=== PATIENT | female | born 1955 | race Caucasian/White ===

== ENCOUNTER → 2019-06-22 | Outpatient (CLI) | payer OTHER ==
[~2019-06-22] VITALS: Ht 170.2 cm; Wt 85.3 kg
[~2019-06-22] MED LIST: MELATONIN5 M4 PO; MOBIC15 MG PO; NEURONTIN 300300 M1 PO; OXYBUTYNIN CHLO10 MG PO; TRAMADOL 50 MG50 MG PO; VITAMIN D10000 UNIT PO; ZANAFLEX4 MG PO; ZOLPIDEM TARTRA10 MG PO; ZYRTEC10 M5 PO
[2019-06-22 14:55] VITALS: BP 147/75
--- NOTE | 2019-06-22 15:11 | NUR ---
Pain Clinic Assessment: 1. History of Osteoarthritis: NO History of Rheumatoid Arthritis: NO 2. Height: 5 ft. 7 in. 170.2 cm. Weight: 188.0 lb. oz. 85.276 kg. Patient's BMI: 29.4 3. Vital Signs: BP: 147/75 Pulse: 79 Resp: 16 Temp: 02 Sat: 97 ECG Mon: 4. Pain Intensity: 4 5. Fall Risk: Dizziness: N Needs help standing or walking: N Fallen in the last 3 months: N Fall risk comments: 6. Patient on Blood Thinner: None 7. History of Hypertension: N 8. Opioid Therapy greater than 6 weeks: N Opiate Contract Signed: 9. Risk Assessment Tool Provided: 10. Functional Assessment Tool: 11. Recreational Drug Use: Never Drug Type: Tobacco Use: Never Smoker Tobacco Type: Amount or Packs/day: How Many Years: Alcohol Use: No Frequency: Quant:
--- NOTE | 2019-06-29 16:33 | HPC ---
[facility] [address] [place] [address] PAIN MANAGEMENT CONSULTATION Name: JODY CRYSTAL Room #: [facility] M..#: [id number] Admission: 06/22/19 Attend Phys: Noam Aguilar MD Discharge: Date of : 51 Report #: [id number] THIS REPORT FOR: //name// CC: Adam Aguilar DATE OF SERVICE: 06/22/2019 CHIEF COMPLAINT: Severe L4 radiculopathy on the right with synovial cyst L3-L4 following instrumentation and laminectomy in the treatment of spondylolisthesis. The patient is a pleasant 63 year old I am seeing today at the request of Kristen Hogan. She has had longstanding low back pain and ultimately underwent an L4-L5 fusion for treatment of spondylolisthesis. At the time of surgery, she was living in [place] and the surgery was performed in [place]. For a brief time, she was improved. In 2019, she began experiencing pain once again. By this time, she had moved to [place] to be closer to family. Today, she describes a continuous buzzing, throbbing, sharp, stabbing, cramping pain that varies based on position between 4-8/10 and can be as bad as a 10+/10. She describes it as one of her worst pains ever at times. It is radiating and nerve like. It is improved when she is able to lay down or sits. She has had an MRI, which I was able to review. I reviewed both the report and the films in detail. There is a diffuse moderate bulge and moderate facet arthropathy at L3-L4 with a fairly large synovial cyst adjacent to the right facet producing right lateral recess and a mass effect on the lateral thecal sac. This does not appear to be affecting the L3 nerve root; however, as this nerve exits through the L3-L4 neural foramen. It seems to be catching the L4 nerve root as it passes along the pedicle and out through the L4-L5 neural foramen. There is no significant neural stenosis there. Her pain follows a very classic L4 distribution into the great toe of the right foot. MEDICATIONS: Vitamin D, oxybutynin, melatonin, zolpidem, turmeric, gabapentin 300 mg t.i.d., tizanidine 4 mg, tramadol 50 mg, and ibuprofen 200 mg. ALLERGIES: None. She is sensitive to opioids and does not want to take hydrocodone or any stronger mu-opioid agonist. PAST MEDICAL HISTORY: Positive for in 1989, asthma, hysterectomy in 2015. She complains of arthritis involving the spine. SOCIAL HISTORY: She denies use of tobacco and alcohol. She is . Her is with her today and supportive. She worked in retail sales until retiring in 2015 when she moved to [place] to be closer to family. [facility] [address] [place] [address] PAIN MANAGEMENT CONSULTATION Name: JODY CRYSTAL Room #: REG [facility] Erwin#: [id number] Admission: 06/22/19 Attend Phys: Noam Aguilar MD Discharge: Date of : 51 Report #: [id number] REVIEW OF SYSTEMS: Completed by the patient describing decreased weight and appetite related to pain, fatigue, and weakness also pain related, chronic asthma under control, nocturia. PHYSICAL EXAMINATION: VITAL SIGNS: She is 5 feet 7 inches, 188 pounds, BMI is 29.4. Blood pressure is 145/75, heart rate 79, respirations 16, O2 sat 97. Pain intensity in the sitting position is 4/10. HEENT: Normal. Pupils are equal, round, reactive to light. EOMs are intact. NECK: Supple. No palpable masses or adenopathy. CHEST: Clear to auscultation without wheezing or asthma. CARDIAC: Regular rate and rhythm without murmur. MUSCULOSKELETAL: Examination of the spine reveals a parallel scars in the lumbosacral region consistent with a technique utilized to perform reduction of anterolisthesis. There is tenderness bilaterally along the lumbosacral spine in the paravertebral muscle groups. The straight leg raising is present and positive in the sitting and supine position following an L4 distribution. Deep tendon reflexes are asymmetrical at the patellar tendon with a 2+ reflex on the left and a trace on the right. This suggests L4 radiculopathy. Sensation is intact, although there is some hyperalgesia along the course of the L4 nerve root through the hip, anterolateral thigh and into the lower leg and foot. Strength is adequate and there is no asymmetry. MRI is reviewed as above. IMPRESSION: L4 radiculopathy on the right secondary to L3-L4 synovial cyst projecting into the right lateral recess creating stenosis and a mass effect on the thecal sac. RECOMMENDATIONS: I believe that we can perform a right L3-L4 transforaminal injection and attempt a trephination in the process. The needle will need to be placed low in the foramen and will be done with the patient awake without local anesthetic to be cautious about any paresthesia of the L3 nerve root. An alternate approach would be posteriorly with the penetration of the L3-L4 facet joint, followed by injection to create a positive pressure within the cyst sometimes rupturing it. Radiology physicians have been more capable of this form of cyst treatment, sometimes performing under CT guidance. She may ultimately require a facetectomy if we are unable to perform this with a minimally invasive injection. I have asked for a preauthorization of a transforaminal epidural injection with fenestration of synovial cyst. Preauthorization is required before we can proceed. Procedure was explained in great detail to the patient and her . [facility] [address] [place] [address] PAIN MANAGEMENT CONSULTATION Name: JODY CRYSTAL [facility] [id number] Admission: 06/22/19 Attend Phys: Noam Aguilar MD Discharge: Date of : 51 Report #: [id number] Questions were asked and answered. Risks of the procedure were discussed. Followup visit planned as soon as we have preauthorization to go forward. <ELECTRONICALLY SIGNED> By: Noam Aguilar MD 06/29/19 [id number] Noam Aguilar MD /nt
== END ==
LOC: PAIN 07:04
DX: M54.16 Radiculopathy, lumbar region (principal); J45.909 Unspecified asthma, uncomplicated; M71.38 Other bursal cyst, other site; Z79.899 Other long term (current) drug therapy; Z88.8 Allergy status to other drugs, medicaments and biological substances